=== PATIENT | male | born 1960 ===

== ENCOUNTER 2017-06-21 08:26 | Outpatient (CLI) | payer OTHER | END 2017-06-21 08:46 | disposition home or self-care (01) | LOC: LAB 08:26 | DX: I11.9 Hypertensive heart disease without heart failure (principal); E78.4 Other hyperlipidemia ==

== ENCOUNTER 2017-10-18 08:37 | Outpatient (CLI) | payer OTHER | END 2017-10-18 09:25 | disposition home or self-care (01) | LOC: LAB 08:37 | DX: I11.9 Hypertensive heart disease without heart failure (principal); E78.4 Other hyperlipidemia; N40.0 Benign prostatic hyperplasia without lower urinary tract symptoms ==

== ENCOUNTER 2017-12-25 19:09 | Outpatient (CLI) | payer OTHER | END 2017-12-25 19:36 | disposition home or self-care (01) | LOC: LAB 19:09 | DX: B00.89 Other herpesviral infection (principal) ==

== ENCOUNTER 2017-12-28 19:21 | Outpatient (CLI) | payer OTHER | END 2017-12-28 19:33 | disposition home or self-care (01) | LOC: LAB 19:21 | DX: L01.03 Bullous impetigo (principal) ==